=== PATIENT | female | born 1970 | race Caucasian/White ===

== ENCOUNTER → 2016-06-15 13:01 | Outpatient (CLI) | payer MEDICAID ==
[2015-09-07 08:19] VITALS: BMI 18.3
[~2016-06-15 13:01] MED LIST: CHANTIX 1 MG TAB1 MG PO; HYDROCODONE-APA1 TAB PO; IBUPROFEN800 MG PO; NEURONTIN600 MG PO; PROAIR HFA8.5 GM INH; PROVERA10 MG PO; SOMA350 MG PO; XANAX1 MG PO
== END | disposition home or self-care (01) ==
LOC: D.CT 13:01
DX: R59.0 Localized enlarged lymph nodes (principal)

== ENCOUNTER 2016-09-17 09:15 | Emergency (ER) | payer SELFPAY ==
[2015-09-07 08:19] VITALS: BMI 18.3
[2016-09-17 12:10] LABS: BASOPHILS 0.4 % (0-2); HEMATOCRIT 39.7 % (36.0-48.0); HEMOGLOBIN 12.8 g/dL (12-16); IMMATURE GRANULOCYTES 0.3 % (0-5); LYMPHOCYTES 39.1 % (15-50); MCHC 32.2 g/dL (31.0-37.0); MCV 105.6 fL (80.0-100.0); MEAN PLATELET VOLUME 9.3 fL (7.4-10.4); MONOCYTES 9.6 % (2-11); NEUTROPHILS 46.6 % (40-80); PLATELET COUNT 207 10x3/uL (130-400); RBC 3.76 10x6/uL (4.00-5.40); RDW 12.9 % (11.5-14.5); WBC 6.8 10x3/uL (4.8-10.8)
[2016-09-17 12:19] LABS: UDS - AMPHET NEGATIVE QUAL (NEGATIVE); UDS - BARB NEGATIVE QUAL (NEGATIVE); UDS - BENZO POSITIVE QUAL (NEGATIVE); UDS - COCAINE NEGATIVE QUAL (NEGATIVE); UDS - METH NEGATIVE QUAL (NEGATIVE); UDS - OPIATE POSITIVE QUAL (NEGATIVE); UDS - PCP NEGATIVE QUAL (NEGATIVE); UDS - THC NEGATIVE QUAL (NEGATIVE)
[2016-09-17 12:21] LABS: APPEARANCE CLEAR (CLEAR); BACTERIA FEW /hpf (NONE SEEN); BILIRUBIN NEGATIVE (NEGATIVE); COLOR YELLOW (YELLOW); EPITHELIAL CELLS 0-5 /hpf (0-5); GLUCOSE NEGATIVE (NEGATIVE); KETONE NEGATIVE (NEGATIVE); LEUKOCYTE ESTERASE TRACE (NEGATIVE); MUCUS <1+ /lpf (NONE SEEN); NITRITE NEGATIVE (NEGATIVE); PROTEIN NEGATIVE (NEGATIVE); SPECIFIC GRAVITY 1.015 (1.005-1.020); UROBILINOGEN NORMAL (NORMAL); WHITE CELLS - URINE 0-5 /hpf (0-5)
[2016-09-17 12:30] LABS: ALKALINE PHOSPHATASE 79 U/L (46-116); ALT (SGPT) 12 U/L (10-68); BILIRUBIN - TOTAL 0.17 mg/dL (0.2-1.3); CALC OSMOLALITY 276 mosm/kg (275-300); CALCIUM 8.5 mg/dL (8.5-10.1); CHLORIDE - SERUM 104 mmol/L (98-107); CREATININE - SERUM 0.8 mg/dL (0.6-1.3); GLUCOSE 91 mg/dL (74-106); POTASSIUM - SERUM 3.7 mmol/L (3.5-5.1); PROTEIN - SERUM 6.6 g/dL (6.4-8.2); SODIUM 140 mmol/L (136-145); UREA NITROGEN 7 mg/dL (7-18); eGFR NON AFRICAN AMERICAN 82 mL/min (90-120)
[2016-09-17 12:35] LABS: C-REACTIVE PROTEIN < 0.2 mg/dL (0.0-0.9)
== END 2016-09-17 13:40 | disposition home or self-care (01) ==
LOC: D.ER 09:15
PROVIDERS: Physician Assistant
DX: R51 Headache (principal); R53.1 Weakness; M54.2 Cervicalgia; R11.0 Nausea; M79.7 Fibromyalgia; F17.200 Nicotine dependence, unspecified, uncomplicated

== ENCOUNTER → 2016-09-18 12:39 | Outpatient (CLI) | payer OTHER ==
[2015-09-07 08:19] VITALS: BMI 18.3
== END | disposition home or self-care (01) ==
LOC: D.RT 12:39
DX: Z02.71 Encounter for disability determination (principal)